=== PATIENT | male | born 1995 | race Caucasian/White ===

== ENCOUNTER 2018-05-07 15:30 | Emergency (ER) | payer BC ==
[~2018-05-07] VITALS: Ht 177.8 cm; Wt 146.6 kg
[~2018-05-07 15:30] MED LIST: AMITRIPTYLINE H10 MG; CIPRO500 MG PO; NOHOMEMEDS; PRILOSEC20 MG PO
[2018-05-07 15:38] VITALS: BP 138/82
== END 2018-05-07 17:13 | disposition left against medical advice (07) ==
LOC: EME 15:30
DX: M25.561 Pain in right knee (principal); Z53.21 Procedure and treatment not carried out due to patient leaving prior to being seen by health care provider